=== PATIENT | male | born 1960 ===

== ENCOUNTER 2019-05-19 11:56 | Inpatient (IN) ==
--- NOTE | 2019-05-19 12:23 | CT Scan Report ---
HEAD CT NONCONTRAST CT DOSE: 614.27 mGy.cm HISTORY: Stroke evaluation TECHNIQUE: Multiaxial CT images of the head were performed without the use of intravenous contrast. A utomated exposure control was utilized for this study. A dose lowering technique was utilized adheri ng to the principles of ALARA. Comparison: None. Findings: The paranasal sinuses and mastoid air cells are clear. Old right frontal and left parietal francisco javier holes are noted. Embolization coils noted within the left temporal lobe. Focal area of encephalo malacia within the left frontotemporal lobe likely representing old postoperative change. 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 Patchy periventricular white matter hypodensity is nonspecific but suggestive of microvascular isch emic change. Metallic artifact from the left-sided embolization coils. There is no definite mass, hem atoma, midline shift, acute infarct. Impression: Chronic and postoperative changes as described above. No acute intracranial abnormality. ACT 112: Negative or not required by law. Electronically signed by: Solomon Nieves M.D. 05/19/2019 12:22 PM
[2019-05-19] MEDS ORDERED: OPTIRAY 320 125ml IV PRN (12:33)
[2019-05-19 12:36] LABS: iSTAT Hemoglobin 15.6 g/dl (14.0-18.0); iSTAT Ionized Calcium 1.2 mmol/l (1.12-1.32); iSTAT Potassium 5.4 mEq/L (3.3-5.0)
[2019-05-19 12:36] LABS: Basophils # (auto) 0.02 K/uL (0-0.2); Basophils % (auto) 0.3 %; Eosinophils # (auto) 0.05 K/uL (0-0.5); Eosinophils % (auto) 0.8 %; Hematocrit (blood only) 43.3 % (42-52); Hemoglobin 15.2 g/dL (14.0-18.0); Immature Granulocytes # (auto) 0.01 K/uL (0.00-0.02); Immature Granulocytes % (auto) 0.2 %; Lymphocytes # (auto) 3.05 K/uL (1.2-3.4); Lymphocytes % (auto) 49.5 %; Mean Corpuscular Hemoglobin 30.2 pg (25-34); Mean Corpuscular Hgb Conc 35.1 g/dL (32-36); Mean Corpuscular Volume 85.9 fL (80-100); Mean Platelet Volume 10.1 fL (7.4-10.4); Monocytes # (auto) 0.51 K/uL (0.11-0.59); Monocytes % (auto) 8.3 %; Neutrophils # (auto) 2.52 K/uL (1.4-6.5); Neutrophils % (auto) 40.9 %; Platelet Count 130 K/uL (130-400); RDW Coefficient of Variation 13.2 % (11.5-14.5); RDW Standard Deviation 41.3 fL (36.4-46.3); Red Blood Count 5.04 M/uL (4.7-6.1); White Blood Count 6.16 K/uL (4.8-10.8)
[2019-05-19 12:45] LABS: INR 1.1 (0.9-1.1); Partial Thromboplastin Time 26.8 Seconds (21.0-31.0); Prothrombin Time 10.9 Seconds (9.0-12.0)
[2019-05-19] MEDS ORDERED: HydrALAZINE HCL 20 MG/ML VIAL IV ONE (12:53)
--- NOTE | 2019-05-19 13:00 | CT Scan Report ---
CT angio head w con CLINICAL HISTORY: 58 years-old Male presenting with right-sided weakness, concern for stroke. TECHNIQUE: Multidetector CT angiography of the head was performed after the administration of intrave nous contrast. 3-D volumetric and/or maximum intensity projection (MIP) images were subsequently samson nstructed for review. IV contrast: 120 mL of Optiray 320. One or more dose lowering techniques were u sed consistent with the principles of ALARA (as low as reasonably achievable), including automatic ex posure control, mA or kV adjustment to individual patient size, and/or use of iterative reconstructio n. COMPARISON: Noncontrast CT head performed earlier the same day. CT DOSE (mGy.cm): The estimated cumulative dose is 624.54 mGy.cm. FINDINGS: Ski Patrol topogram: Left parietal francisco javier hole. Anterior circulation: Intracranial portions of the internal carotid arteries patent to the level of t he termini. Anterior cerebral arteries patent. Middle cerebral arteries patent. Anterior communicatin g artery patent. Posterior circulation: Left dominant vertebral artery. Intradural portions of the vertebral arteries patent. Posterior inferior cerebellar arteries patent. Basilar artery patent. Anterior inferior cereb ellar arteries poorly visualized. Superior cerebellar arteries patent. Posterior cerebral arteries pa tent. Posterior communicating arteries patent. Dural venous sinuses: Patent. Other: Chronic encephalomalacia in the left temporoparietal region with associated post surgical keating ges of the overlying calvarium. Additional encephalomalacia in the left occipital lobe. IMPRESSION: 1. No evidence of aneurysm, focal vessel occlusion, or significant stenosis of the intracranial ashish patricia. ACT 112: Negative or not required by law. Electronically signed by: Aston Dempsey M.D. 05/19/2019 12:59 PM
--- NOTE | 2019-05-19 13:02 | CT Scan Report ---
NECK CTA HISTORY: Right-sided weakness. TECHNIQUE: Multiaxial CT images of the neck were performed following the intravenous administration o f contrast to evaluate the major cervical vessels. Maximum intensity projection images were also obta ined. All measurements were calculated based on NASCET criteria. A dose lowering technique was utili zed adhering to the principles of ALARA. COMPARISON STUDY: Head CT 05/19/2019. FINDINGS: The aortic arch and proximal great vessels are widely patent. There is no significant sten osis, occlusion, or dissection identified within the bilateral common carotid, internal carotid, or v ertebral arteries. Mild calcified plaque within the left carotid bifurcation. The right vertebral art miesha is slightly hypoplastic and terminates into the right posterior inferior cerebellar artery. This is considered to be a normal variant. IMPRESSION: No significant stenosis, occlusion, or dissection identified within the carotid or vertebral arteries . ACT 112: Negative or not required by law. Electronically signed by: Solomon Nieves M.D. 05/19/2019 1:00 PM
[2019-05-19 13:06] LABS: Alanine Aminotransferase 21 U/L (12-78); Albumin Globulin Ratio 0.8 (0.9-2); Albumin Level 3.9 gm/dl (3.4-5.0); Alkaline Phosphatase 77 U/L (45-117); Bilirubin,Total 0.4 mg/dl (0.2-1); Blood Urea Nitrogen 14 mg/dl (7-18); Carbon Dioxide 27 mmol/L (21-32); Chloride 109 mmol/L (98-107); Creatinine Clr Calc Pharmacy 79.4 ml/min; Est GFR (African American) 83.8; Est GFR (Non-African American) 72.3; Globulin 4.6 gm/dl (2.5-4.0); Glucose 97 mg/dl (70-99); Total Protein 8.5 gm/dl (6.4-8.2); Troponin I < 0.015 ng/ml (0-0.045)
[2019-05-19 13:13] LABS: Potassium 3.9 mmol/L (3.5-5.1); Sodium 139 mmol/L (136-145)
[2019-05-19 13:16] LABS: Appearance Urine Clear (Clear); Bilirubin Urine Negative (Negative); Blood Urine Negative (Negative); Color Urine Yellow; Glucose Urine UA Negative (Negative); Ketones Urine Negative (Negative); Leukocyte Esterase Urine Negative (Negative); Nitrite Urine Negative (Negative); Protein Urine Negative (Negative); Specific Gravity Urine 1.039 (1.000-1.030); Urobilinogen Urine Negative (Negative); pH Urine 7.5 (4.5-7.5)
[2019-05-19 13:35] LABS: Aspartate Aminotransferase 18 U/L (15-37); Magnesium 2.1 mg/dl (1.8-2.4)
[2019-05-19 13:37] LABS: Amphetamines+Metham, Urine Neg (Neg); Barbiturates, Urine Neg (Neg); Benzodiazepine, Urine Neg (Neg); Cocaine, Urine Neg (Neg); MDMA (Ecstacy), Urine Neg (Neg); Methadone, Urine Neg (Neg); Opiate, Urine Neg (Neg); Phencyclidine, Urine Neg (Neg)
--- NOTE | 2019-05-19 13:45 | XRay Report ---
XR chest 1V portable CLINICAL HISTORY: 58 years-old Male presenting with weakness. TECHNIQUE: Portable upright AP view of the chest was obtained. COMPARISON: None. FINDINGS: Cardiac silhouette top normal in prominence. Probably low lung volumes. No focal opacity. Prominent l lainey markings at the lung bases likely due to vascular crowding. No pleural effusion or pneumothorax. Degenerative changes of the right acromioclavicular joint. Upper abdomen normal. IMPRESSION: Mildly low lung volumes with hypoventilatory changes. ACT 112: Negative or not required by law. Electronically signed by: Aston Dempsey M.D. 05/19/2019 1:44 PM
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
[2019-05-19] MEDS ORDERED: ACETAMINOPHEN 325 MG TAB PO PRN (15:47)
[2019-05-19] MEDS ORDERED: ONDANSETRON INJ 2 MG/ML 2 ML VIAL IV PRN (15:47)
[2019-05-19] MEDS: TERAZOSIN HCL 1 MG CAP PO SCH (21:21)
[2019-05-19] MEDS: levETIRAcetam 500 MG TAB PO SCH (21:22)
[2019-05-19] MEDS: PARoxetine HCl 20 MG TAB PO SCH (21:23)
[2019-05-19] MEDS: MIRTAZAPINE SOLTAB 15 MG PO SCH (21:23)
[2019-05-20 07:21] LABS: Hematocrit (blood only) 43.2 % (42-52); Hemoglobin 14.8 g/dL (14.0-18.0); Mean Corpuscular Hemoglobin 29.7 pg (25-34); Mean Corpuscular Hgb Conc 34.3 g/dL (32-36); Mean Corpuscular Volume 86.6 fL (80-100); Mean Platelet Volume 10.5 fL (7.4-10.4); Platelet Count 117 K/uL (130-400); RDW Coefficient of Variation 13.1 % (11.5-14.5); RDW Standard Deviation 41.4 fL (36.4-46.3); Red Blood Count 4.99 M/uL (4.7-6.1); White Blood Count 4.36 K/uL (4.8-10.8)
[2019-05-20 07:55] LABS: Albumin Level 3.7 gm/dl (3.4-5.0); BUN Creatinine Ratio 15.1 (10-20); Calcium 9.3 mg/dl (8.5-10.1); Creatinine Clr Calc Pharmacy 77.8 ml/min; Est GFR (African American) 90.5; Est GFR (Non-African American) 78.1; Potassium 3.6 mmol/L (3.5-5.1)
[2019-05-20 07:58] LABS: Albumin Globulin Ratio 0.9 (0.9-2); Bilirubin,Total 0.6 mg/dl (0.2-1); Total Protein 7.7 gm/dl (6.4-8.2)
[2019-05-20] MEDS: ASPIRIN 81 MG ECTAB PO SCH (08:47)
[2019-05-20] MEDS: AMLODIPINE BESYLATE 5 MG TAB PO SCH (08:48)
[2019-05-20] MEDS: levETIRAcetam 500 MG TAB PO SCH ×2 (08:48→21:09)
[2019-05-20] MEDS: hydroCHLOROthiazide 25 MG TAB PO SCH (08:48)
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
[2019-05-20] MEDS: MIRTAZAPINE SOLTAB 15 MG PO SCH (21:09)
[2019-05-20] MEDS: TERAZOSIN HCL 1 MG CAP PO SCH (21:09)
[2019-05-20] MEDS: PARoxetine HCl 20 MG TAB PO SCH (21:09)
--- NOTE | 2019-05-20 22:10 | XRay Report ---
XR knee RT 3V CLINICAL HISTORY: 58 years-old Male presenting with right knee pain, eval OA. TECHNIQUE: Frontal and crosstable lateral views of the right knee were obtained. COMPARISON: None. FINDINGS: Knee joint congruent. Mild medial joint space loss. Mild osteophytosis in the patellofemoral compartm ent. Enthesophyte at the insertion of the quadriceps tendon. No acute fracture or malalignment. No gr oss evidence of an knee joint effusion. No radiographic soft tissue abnormality. IMPRESSION: 1. Mild degenerative changes in the patellofemoral compartment. 2. Possible mild medial compartment joint space loss. 3. No acute osseous injury. ACT 112: Negative or not required by law. Electronically signed by: Aston Dempsey M.D. 05/20/2019 10:08 PM
[2019-05-21 04:28] LABS: 7-Aminoclonazepam DNR ng/mL (<25); Alpha-Hydroxyalprazolam DNR ng/mL (<25); Alphahydroxytriazolam DNR ng/mL (<50); Amobarbital DNR ng/mL (<100); Amphetamines, Ur NEGATIVE ng/mL (<500); Amphetemines Ur GC/MS DNR ng/mL (<250); Barbiturates, Urine NEGATIVE ng/mL (<300); Benzodiazepines,Ur NEGATIVE ng/mL (<100); Butalbital DNR ng/mL (<100); Cocaine, Urine NEGATIVE ng/mL (<150); Cocaine,Ur GC/MS DNR ng/mL (<100); Codeine DNR ng/mL (<50); Confirmatory Facility DNR; EDDP DNR ng/mL (<100); Hydrocodone DNR ng/mL (<50); Hydromorphone DNR ng/mL (<50); Hydroxyethylflurazepam DNR ng/mL (<50); Lorazepam DNR ng/mL (<50); Methadone, Ur GC/MS NEGATIVE ng/mL (<100); Methadone, Urine DNR ng/mL (<100); Methamphetamine DNR ng/mL (<250); Morphine DNR ng/mL (<50); Norhydrocodone DNR ng/mL (<50); Noroxycodone DNR ng/mL (<50); Opiates, Urine NEGATIVE ng/mL (<100); Oxycodone,Ur Screen NEGATIVE ng/mL (<100); Pentobarbital DNR ng/mL (<100); Phencyclidine, Ur NEGATIVE ng/mL (<25); Phencyclidine,Ur GC/MS DNR ng/mL (<25); Secobarbital DNR ng/mL (<100); THC20, Qual, Urine NEGATIVE ng/mL (<20); Temazepam DNR ng/mL (<50); Tetrahydrocannabinol DNR ng/mL (<5)
[2019-05-21 07:13] LABS: Hematocrit (blood only) 44.1 % (42-52); Hemoglobin 15.7 g/dL (14.0-18.0); Mean Corpuscular Hemoglobin 30.4 pg (25-34); Mean Corpuscular Hgb Conc 35.6 g/dL (32-36); Mean Corpuscular Volume 85.5 fL (80-100); Mean Platelet Volume 10.1 fL (7.4-10.4); Platelet Count 119 K/uL (130-400); RDW Standard Deviation 40.6 fL (36.4-46.3); Red Blood Count 5.16 M/uL (4.7-6.1); White Blood Count 5.29 K/uL (4.8-10.8)
[2019-05-21 07:21] LABS: Estimated Average Glucose 108 mg/dl; Hemoglobin A1C 5.4 % (4.5-5.6)
[2019-05-21 07:46] LABS: BUN Creatinine Ratio 16.6 (10-20); Calcium 9.3 mg/dl (8.5-10.1); Creatinine Clr Calc Pharmacy 73.6 ml/min; Est GFR (African American) 84.7; Potassium 3.5 mmol/L (3.5-5.1)
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
[2019-05-21 09:21] LABS: Folate (Folic Acid) > 24.00 ng/ml (>5.38); Vitamin B12 574 pg/ml (211-911)
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
[2019-05-21] MEDS: ASPIRIN 81 MG ECTAB PO SCH (09:45)
[2019-05-21] MEDS: AMLODIPINE BESYLATE 5 MG TAB PO SCH (09:45)
[2019-05-21] MEDS: levETIRAcetam 500 MG TAB PO SCH (09:45)
[2019-05-21] MEDS: hydroCHLOROthiazide 25 MG TAB PO SCH (09:45)
== END 2019-05-21 11:53 | DRG 92 ==
LOC: ED 11:56 → SUATTDRO 14:13 → 2S 14:13